=== PATIENT | male | born 1990 | race Caucasian/White ===

== ENCOUNTER 2016-09-13 05:53 | Emergency (ER) | payer MEDICAID ==
--- NOTE | 2016-09-13 06:56 | ER NURSING DOCUMENTATION ---
Nurse's Notes [facility] Name:Kai Gonsalves Age:25 yrs Sex:Male :1990 Arrival Date:09/13/2016 Time:05:53 Bed1 Private MD:Italia Leblanc Diagnosis:MRSA-Methicillin Suscept Staph Aureus Presentation: 09/13 05:58 Presenting complaint:. rh 05:58 Acuity: POLA 4 rh 05:58 Presenting complaint: Patient states: Pt has had MRSA in the past, he has lesions on rh his upper back x2 that have been bothering him for 1 week. No fever or chills. Transition of care: Home. 05:58 Method Of Arrival: Walk In Triage Assessment: 06:00 General: Appears in no apparent distress, Behavior is cooperative. Pain: Complains of rh pain in right scapular area and left subscapular area. EENT: Oral mucosa is moist. Neuro: Level of Consciousness is awake, alert, obeys commands, Oriented to person, place, time, event. Cardiovascular: Capillary refill < 3 seconds. Respiratory: Airway is patent. Derm: Skin is intact, is healthy with good turgor, has lesions on UPPER BACK. Historical: - Allergies: TETRACYCLINES; - Home Meds: 1. Abilify 15 mg oral tab 1 tab once daily 2. Lexapro oral 3. lamotrigine 150 mg oral tab 1 tab once daily 4. Xanax oral - PMHx: DEPRESSION; ANXIETY; - PSHx: None; - Tetanus: < 10 years. - Ebola Screening: : Patient negative for fever greater than or equal to 101.5 degrees Fahrenheit, and additional compatible Ebola Virus Disease symptoms. - Immunization history: Flu Vaccine None. - Social history: Smoking status: Patient uses tobacco products, current every day smoker. Screenin:02 Infectious Disease Risk None. Abuse screen: Denies threats or abuse. Denies injuries rh from another. Nutritional screening: No deficits noted. Assessment: 06:02 See Triage Assessment done by same RN. Vital Signs: 06:01 BP 141 / 105; Pulse 111; Resp 16; Temp 97.6; Pulse Ox 94% on R/A; Weight 95.25 kg; rh Height 5 ft. 11 in. (180.34 cm); Pain 2/10; 06:01 Body Mass Index 29.29 (95.25 kg, 180.34 cm) ED Course: 05:56 Patient arrived in ED. em2 05:56 Italia Leblanc DO is Private Physician. em2 05:58 Heather Hermosillo is Primary Nurse. 05:58 Triage completed. 06:02 Valuables Remains with patient Patient has correct armband on for positive rh identification. Call light in reach. Side rails up X 1. 06:48 Abraham Yu MD is Attending Physician. cd 06:48 Italia Leblanc DO is Referral Physician. cd Administered Medications: No medications were administered Outcome: 06:48 Discharge ordered by MD. cd 06:55 Discharged to home ambulatory, with family. 06:55 Condition: stable 06:55 Discharge Assessment: Patient awake, alert and oriented x 3. No cognitive and/or functional deficits noted. Patient verbalized understanding of disposition instructions. 06:55 Discharge instructions given to patient, Instructed on discharge instructions, follow up and referral plans. medication usage, Demonstrated understanding of instructions, medications, Prescriptions given X 1. 06:55 Patient left the ED. Signatures: Abraham Yu MD MD cd Meisebastian-reg, [place]-reg em2 Heather Hermosillo
--- NOTE | 2016-09-13 06:56 | ER PHYSICIAN DOCUMENTATION ---
Physician Documentation [facility] Name:Kai Gonsalves Age:25 yrs Sex:Male :1990 Arrival Date:09/13/2016 Time:05:53 Bed1 Private MD:Italia Leblanc ED, Chris Disposition: 09/13/16 06:48 Discharged to Home/Self Care. Impression: MRSA-Methicillin Suscept Staph Aureus. - Condition is Good. - Discharge Instructions: CELLULITIS MRSA suspected or confirmed - MRSA SKIN INFECTION, Suspected or Confirmed. - Prescriptions for Bactrim DS 160- 800 mg Oral Tablet - take 1 tablet by ORAL route every 12 hours for 10 days; 20 tablet. - Medical Reconciliation form form. - Follow up: Italia Leblanc DO; When: 7 - 10 days; Reason: Recheck today's complaints, Continuance of care. - Problem is new. - Symptoms are unchanged. - Notes: No more itching. Take Benadryl 25mg by mouth every 6 hours for itching. Take Bactrim DS one tab by mouth every 12 hours for 10 days... HPI: 09/13 06:20 This 25 yrs old Male presents to ER via Walk In with complaints of Wound cd Infection. 06:20 The patient presents with a rash that is though to be caused by PAtient has sores on cd his upper back that he has scratched and have become erythematous ...no drainage. Patient has had MRSA in the past. The rash is located on the back. Onset: The symptom(s)/episode began/occurred acutely, yesterday. Associated signs and symptoms: Pertinent negatives: fever. Historical: - Allergies: TETRACYCLINES; - Home Meds: 1. Abilify 15 mg oral tab 1 tab once daily 2. Lexapro oral 3. lamotrigine 150 mg oral tab 1 tab once daily 4. Xanax oral - PMHx: DEPRESSION; ANXIETY; - PSHx: None; - Tetanus: < 10 years. - Ebola Screening: : Patient negative for fever greater than or equal to 101.5 degrees Fahrenheit, and additional compatible Ebola Virus Disease symptoms. - Immunization history: Flu Vaccine None. - Social history: Smoking status: Patient uses tobacco products, current every day smoker. ROS: 06:30 Constitutional: Negative for chills, fever. cd 06:30 Skin: Positive for erythema, lesions, of the back. 06:30 All other systems are negative. Exam: 06:30 Constitutional: The patient appears alert, awake, non-diaphoretic, non-toxic. cd 06:30 Skin: Appearance: Color: normal in color, lesion(s), noted, and can be described as erythematous, excoriated from scratching. 06:30 MS/ Extremity: Pulses equal, no cyanosis. Neurovascular intact. Full, normal range cd of motion. Vital Signs: 06:01 BP 141 / 105; Pulse 111; Resp 16; Temp 97.6; Pulse Ox 94% on R/A; Weight 95.25 kg; rh Height 5 ft. 11 in. (180.34 cm); Pain 2/10; 06:01 Body Mass Index 29.29 (95.25 kg, 180.34 cm) rh MDM: 06:45 Data reviewed: vital signs, nurses notes, and as a result, I will discharge patient, cd administer antibiotics Bactrim DS. Counseling: I had a detailed discussion with the patient and/or guardian regarding: the historical points, exam findings, and any diagnostic results supporting the discharge/admit diagnosis, the need for outpatient follow up, for a recheck, with the patient's primary care provider, to return to the emergency department if symptoms worsen or persist or if there are any questions or concerns that arise at home. 06:48 Patient medically screened. cd Dispensed Medications: No medications were administered Signatures: Abraham Yu MD MD Heather Hermosillo
== END 2016-09-13 06:56 | disposition home or self-care (01) ==
LOC: ER 05:53
DX: L98.9 Disorder of the skin and subcutaneous tissue, unspecified (principal); B95.61 Methicillin susceptible Staphylococcus aureus infection as the cause of diseases classified elsewhere; Z79.899 Other long term (current) drug therapy
CPT/HCPCS: 99282